=== PATIENT | female | born 1970 | race African-American/Black ===

== ENCOUNTER → 2016-06-05 | Outpatient (CLI) | payer MEDICARE, OTHER ==
[~2016-06-05] MED LIST: ALPRAZOLAM0.5 MG PO; MOBIC15 MG ORAL; NEURONTIN300 MG ORAL; NORCO 5-325 TA1 EAC1 ORAL
--- NOTE | 2016-06-05 10:57 | GI Initial Consult Note ---
History of Present Illness General Date patient seen: Jun 05, 2016 Time patient seen: 10:47 Reason for Consultation: ABDOMINAL PAIN Present Illness HPI 46 year old female patient known to Dr. Stack prior to clinic visit from [facility] in which she was admitted for abdominal pain / diarrhea. She presents today wuth c/o of constipation with periods of diarrhea and loose stools. The patient recently had a colonoscopy in Mar in which was unremarkable per patient report. Home Meds Reported Medications Alprazolam* (XANAX*) Unknown Strength Tablet, PO TID, TAB 06/05/16 Meloxicam* (MOBIC*) 15 Mg Tablet, 15 MG ORAL DAILY, #30 TAB 0 Refills 06/05/16 Gabapentin (Neurontin) 300 Mg Capsule, 300 MG ORAL BID, CAP 0 Refills 06/05/16 Hydrocodone Bit/Acetaminophen 5-325* (NORCO 5-325 TABLET*) 1 Each Tablet, 1 TAB ORAL Q4H Y, TAB 06/05/16 Med list reviewed/reconciled: Yes Patient History History Provided By: Patient PMH Narrative Spinal injury sciatica anxiety PSHx 2004 exploratory for endometrials Family History Narrative Aunt - Colon [place] Social History: Denies: alcohol use, drug use, other, smoking Review of Systems All Other Systems: negative except mentioned in HPI Physical Exam T 97.5 BP 117/74 P 87 98 RA HT 5'7 WT 223 Sp02 EP Interpretation: reviewed General Appearance: well appearing, no apparent distress, alert Head: normocephalic EENT: normal ENT inspection Neck: full range of motion, supple Respiratory: normal inspection, normal breath sounds, no respiratory distress Cardiovascular: normal rate Gastrointestinal: normal inspection, non tender, soft, normal bowel sounds Rectal: normal exam Musculoskeletal: normal inspection Neurologic: normal inspection, alert, responsive Psychiatric: normal inspection, judgement/insight normal Skin: normal inspection, normal color, no rash, warm/dry Lymphatic: normal inspection, no adenopathy GI: Plan Problems: (1) Constipation (2) Therapeutic opioid-induced constipation (OIC) (3) Diarrhea (4) Abdominal pain Plan s/p colonoscopy, Mar 2016 >> unremarkable trial Rx Movantik RTC x [address] Stack. Isabela Soto N.P. Jun 05, 2016 10:57
[2016-06-05 17:01] VITALS: BP 117/74
== END | disposition home or self-care (01) ==
LOC: PAN 10:01
DX: R10.9 Unspecified abdominal pain (principal); R19.7 Diarrhea, unspecified; K59.03 Drug induced constipation; M54.30 Sciatica, unspecified side; Z80.0 Family history of malignant neoplasm of digestive organs
CPT/HCPCS: 99211